=== PATIENT | male | born 1980 | race Caucasian/White ===

== ENCOUNTER → 2019-08-01 | Outpatient (CLI) | payer OTHER ==
[~2019-08-01] MED LIST: 0.9 % SODIUM CHLORIDE 10 ML DISP.SYRIN. ID ONE; CONTRAST GIVEN. MC PRN; GADOTERATE 5 MMOL/10ML VIAL. INT ART ONE; IOHEXOL 300 MG/ML 50 ML VIAL. INT ART ONE; LIDOCAINE 1% Multi-Dose 20 ML VIAL. ID ONE
--- NOTE | 2019-08-01 14:57 | KCIC ---
MRI arthrogram of the right shoulder HISTORY: Right shoulder pain. TECHNIQUE: Routine 4 plane sequences are obtained after intra-articular contrast injection. FINDINGS: Acromioclavicular joint is mildly degenerative. No evidence of rotator cuff tear. No significant fluid or contrast in the subdeltoid bursa. Small tear of the posterosuperior labrum. Tiny defect at the chondrolabral junction of the anteroinferior labrum seen on Aber sequence series 12 image 10. No acute articular cartilage defect. Biceps tendon is intact. No acute fracture. No aggressive bone destruction. IMPRESSION: 1. Posterosuperior labral tear. 2. Tiny defect or tear at the anteroinferior chondrolabral junction. Electronically signed by: Len Martell MD (08/01/2019 2:54 PM) [email or web address]
--- NOTE | 2019-08-01 17:32 | KCIC ---
PROCEDURE: Right shoulder injection using fluoroscopic guidance, prior to MR. HISTORY: Shoulder pain. TECHNIQUE: The procedure was explained to the patient as were potential risks, including among others infection, bleeding or allergic reaction. All questions were answered. Informed written and verbal consent was obtained. The shoulder was prepped and draped in the usual sterile manner. Following administration of local anesthetic, a 22-gauge needle was advanced into the anterior shoulder. Following negative aspiration, 12 cc of a solution of 5cc Omnipaque-300 contrast, 5 cc 1% lidocaine, 10 cc normal saline, and 0.1 cc gadolinium was injected without difficulty. The needle was removed. There was good hemostasis at the injection site. The patient left in stable condition without immediate complication. Patient was given postprocedural instructions and advised to contact their physician in the event of any unexpected complication. A single spot image is obtained. FLUOROSCOPY TIME:?24 seconds Electronically signed by: Len Martell MD (08/01/2019 5:29 PM) [email or web address]
== END | disposition home or self-care (01) ==
LOC: KCIC 13:19
PROVIDERS: ATTEND Family Medicine
DX: M25.511 Pain in right shoulder (principal)
CPT/HCPCS: 23350; 73222; 77002; A9575; Q9967; 73040

== ENCOUNTER 2019-10-18 08:27 | Day surgery (SDC) | payer OTHER ==
[~2019-10-18] VITALS: Ht 182.9 cm; Wt 83.0 kg
[~2019-10-18 08:27] MED LIST changes: -0.9 % SODIUM CHLORIDE 10 ML DISP.SYRIN. ID ONE; +BUPIVACAINE MPF 0.5% 30 ML VIAL. ONE; +CLINDAMYCIN 900MG PREMIX 50 ML IV ONE; -CONTRAST GIVEN. MC PRN; +DEXAMETHASONE SOD PHOS 4 MG/ML VIAL ONE; +EPINEPHrine VIAL 30 MG/30 ML VIAL ONE; -GADOTERATE 5 MMOL/10ML VIAL. INT ART ONE; +HYDROmorphone 2 MG/ML VIAL IV PRN; -IOHEXOL 300 MG/ML 50 ML VIAL. INT ART ONE; +IV RINGERS,LACTATED 1000ML 1,000 ML IV SCH; +LIDOCAINE 1% 20 ML VIAL. ONE; -LIDOCAINE 1% Multi-Dose 20 ML VIAL. ID ONE; +LIDOCAINE 1% PF 2 ML VIAL. ID PRN; +LIDOCAINE 2% PF 5 ML VIAL. ONE; +MIDAZOLAM HCL/PF 2 MG/2 ML VIAL. ONE; +MORPHINE SULFATE 2 MG/ML VIAL. IV PRN; +ONDANSETRON PF 4 MG/2 ML VIAL. IV PRN; +ONDANSETRON PF 4 MG/2 ML VIAL. ONE; +PROCHLORPERAZINE 10 MG/2 ML VIAL. IV PRN; +PROPOFOL 20 ML IV ONE; +ROCURONIUM 50 MG/5 ML VIAL. ONE; +fentaNYL PF VIAL 100 MCG/2 ML VIAL IV PRN; +fentaNYL PF VIAL 100 MCG/2 ML VIAL ONE
[2019-10-18] MEDS ORDERED: MIDAZOLAM HCL/PF 2 MG/2 ML VIAL. ONE (09:19)
[2019-10-18] MEDS ORDERED: BUPIVACAINE MPF 0.5% 30 ML VIAL. ONE (09:20)
--- NOTE | 2019-10-18 09:49 | DISCH ---
DISCHARGE INSTRUCTIONS Condition on Discharge Condition on Discharge: Stable Activity After Discharge Activity Instructions for Disc: Other ROM activity Other activity instructions: arm to remain in sling Bathing Instructions: Shower-keep dressing dry Weight Bearing Status after Di: Non weight bearing Diet after Discharge Diet after Discharge: Regular Wound Incision Care Wound/Incision Care: Ice to area for comfort, Keep wound/cast CDI, Change dressing Contacting the [facility] after DC Call your doctor for: Concerns you may have Follow-Up Follow up with: Priti in 2 wks SOUTH ALVAREZ II, MD Oct 18, 2019 09:49
[2019-10-18] MEDS ORDERED: SEVOFLURANE > 120 MINUTES. IH ONE (10:51)
[2019-10-18] MEDS ORDERED: GLYCOPYRROLATE 1 MG/5 ML VIAL. ONE (11:11)
[2019-10-18] MEDS ORDERED: NEOSTIGMINE METHYLSULFATE 5 MG/5 ML SYRINGE. ONE (11:11)
--- NOTE | 2019-10-18 12:15 | PDOC4 ---
Operative Note Operative Note Date of procedure: 10/18/2019 Surgeon: Sumit Alvarez Asst.: Jaison Marroquin Preoperative diagnosis: Right shoulder labral tear Postoperative diagnosis: Same Procedure performed: Arthroscopic right shoulder labral repair Anesthesia: Gen. plus nerve block Complications: None Findings: Patient had a labral tear involving the superior labrum wrapping around to his posterior labrum. 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 Clinical and radiographic examination including MRI were consistent with his preoperative diagnosis and we discussed proceeding with surgery given his failure of conservative therapies. We discussed the risks, benefits, and alternatives and he elected to proceed. Description of procedure: Patient was greeted in the preoperative area by myself for the correct extremity was verified and marked. He had a regional nerve block placed by the anesthesiology team. He was taken back to the operative suite, antibiotic started as he was brought back. Once in the operative room, he was transferred gently supine to the operative room table and secured to bed with all pressure points padded, he had successful induction of a general anesthetic. We then laid him in the lateral position with his right side up and secured to the bed using a beanbag. Axillary roll was used and pressure points were padded as well. We then proceeded prep and drape right upper extremity in her usual sterile fashion and conducted our standard preoperative timeout. Ioban was used at the periphery of the drapes. I palpated and marked surface anatomy and nemesio lines my planned portal incisions. I then used a spinal needle localized posterior superior portal and incised skin in accordance with this. I then placed the camera into the glenohumeral joint and used a spinal needle to localize an anterosuperior portal and an anteroinferior portal. I then conducted my diagnostic arthroscopy and noted his labral tear. The remainder of his shoulder was without pathology. I then used a spinal needle to localize a posterior inferior portal, I placed trochars in these portals. After this, used a periosteal elevator, arthroscopic, 2 free up the labrum and the involved portion. I then used the shaver to carefully debride the bone without decorticating it to prepare my bony bed. After this, I placed 2 anchors at the posterior portion of his tear, extended to about 8 o'clock position and then tied these down using arthroscopic knot-tying techniques. I then directed my attention, after repositioned my camera, 2 placed 2 anchors into the superior portion of his labrum and passed these again with a spectrum suture passing device and tied them down with arthroscopic knot-tying tying techniques. His labral tear was stable to probing. I used a shaver to remove any loose bony debris and the excess arthroscopic fluid. After this, the portals were removed as was the arthroscopic instrumentation and I closed skin with simple interrupted 3-0 nylon. He was placed into an abduction pillow sling. He is awake from anesthesia and laid gently supine and transferred gently supine to the recovery room cart and taken to PACU in a stable and extubated condition. Postoperative plan is to discharge him home. [place]'ll be nonweightbearing right upper extremity, he will follow up with me in 2 weeks, sooner should a problem arise SUMIT ALVAREZ II, MD Oct 18, 2019 12:15
[2019-10-18] MEDS ORDERED: DOCU-109 PO (12:28)
[2019-10-18] MEDS ORDERED: ONDA8TAB9 PO (12:29)
[2019-10-18] MEDS ORDERED: OXYC1TAB15 PO (12:29)
[2019-10-18] MEDS ORDERED: oxyCODONE/APAP 5/325 1 TAB TABLET PO ONE (12:30)
[2019-10-18 13:05] VITALS: BP 108/77
== END 2019-10-18 13:25 | disposition home or self-care (01) ==
LOC: SURG 08:27
PROVIDERS: ATTEND Orthopaedic Surgery Sports Medicine
DX: S43.431A Superior glenoid labrum lesion of right shoulder, initial encounter (principal); Z88.0 Allergy status to penicillin; Z87.442 Personal history of urinary calculi; Z72.89 Other problems related to lifestyle; Z79.899 Other long term (current) drug therapy; X58.XXXA Exposure to other specified factors, initial encounter; Y93.89 Activity, other specified; Y92.89 Other specified places as the place of occurrence of the external cause; Y99.8 Other external cause status
CPT/HCPCS: 29807; 36415; 64415; 82306; A7015; C1713; C1782; J0171; J0780; J1100; J2001; J2250; J2405; J2704; J2710; J3010; J3490

== ENCOUNTER 2020-01-11 09:58 | Day surgery (SDC) | payer OTHER ==
[~2020-01-11 09:58] MED LIST changes: -BUPIVACAINE MPF 0.5% 30 ML VIAL. ONE; -CLINDAMYCIN 900MG PREMIX 50 ML IV ONE; -DEXAMETHASONE SOD PHOS 4 MG/ML VIAL ONE; +DOCU-109 PO; -EPINEPHrine VIAL 30 MG/30 ML VIAL ONE; -LIDOCAINE 1% 20 ML VIAL. ONE; -LIDOCAINE 2% PF 5 ML VIAL. ONE; +LORA10TA65 PO; -MIDAZOLAM HCL/PF 2 MG/2 ML VIAL. ONE; +ONDA8TAB9 PO; -ONDANSETRON PF 4 MG/2 ML VIAL. ONE; +OXYC1TAB15 PO; -PROPOFOL 20 ML IV ONE; -ROCURONIUM 50 MG/5 ML VIAL. ONE; -fentaNYL PF VIAL 100 MCG/2 ML VIAL ONE
--- NOTE | 2020-01-11 11:09 | DISCH ---
DISCHARGE INSTRUCTIONS Condition on Discharge Condition on Discharge: Stable Activity After Discharge Activity Instructions for Disc: Other ROM activity Other activity instructions: Arm to remain in sling while block in effect, work on range of motion after Weight Bearing Status after Di: Non weight bearing Diet after Discharge Diet after Discharge: Regular Wound Incision Care Wound/Incision Care: Ice to area for comfort, Keep wound/cast CDI Contacting the [facility] after DC Call your doctor for: Concerns you may have Follow-Up Follow up with: Priti in 2 weeks Follow Up With: Physical therapy tomorrow SOUTH ALVAREZ II, MD Jan 11, 2020 11:09
[2020-01-11] MEDS ORDERED: BUPIVACAINE MPF 0.5% 30 ML VIAL. ONE (11:17)
[2020-01-11] MEDS ORDERED: BUPIVACAINE-EPI 0.5%-1:200000 MPF 30 ML VIAL. ONE (11:17)
[2020-01-11] MEDS ORDERED: LIDOCAINE 1% PF 2 ML VIAL. ONE (11:18)
[2020-01-11] MEDS ORDERED: MIDAZOLAM HCL/PF 2 MG/2 ML VIAL. ONE (11:24)
[2020-01-11] MEDS ORDERED: PROPOFOL 20 ML IV ONE (11:28)
--- NOTE | 2020-01-11 11:59 | PDOC4 ---
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 He had plateaued in terms of his range of motion and was not able to make any progress. Please see my outpatient note for further details. We had a discussion of the risks, benefits, and alternatives to the above surgery and he wished to proceed. Description of procedure: Patient was greeted in the preoperative area by myself or the correct extremity was verified and marked. He was taken to the PACU where a regional nerve block was performed by the anesthesiology team. After this, he was administered conscious sedation and upon adequate relaxation I conducted my examination under anesthesia and then using a short lever arm and an assistant real estate manager holding's stabilization at the scapula, I performed slow and steady forward elevation maneuvers. There was a gratifying release of fibrotic tissue and after gentle repeated maneuvers, his forward elevation was about 160 degrees. He was then awakened from anesthesia, he tolerated this well. He was given a simple sling. Postoperative instructions discussed with his as well as given in written form. I will see him back in 2 weeks, sooner should a problem arise SUMIT ALVAREZ II, MD Jan 11, 2020 11:59
[2020-01-11] MEDS ORDERED: MIDAZOLAM HCL/PF 2 MG/2 ML VIAL. IV ONE (12:00)
[2020-01-11] MEDS ORDERED: OXYC-325 PO (12:20)
[2020-01-11 12:25] VITALS: BP 124/72
== END 2020-01-11 12:50 | disposition home or self-care (01) ==
LOC: SURG 09:58
PROVIDERS: ATTEND Orthopaedic Surgery Sports Medicine
DX: M24.611 Ankylosis, right shoulder (principal); Z87.442 Personal history of urinary calculi; Z72.89 Other problems related to lifestyle
CPT/HCPCS: 23700; J2250; J2704; J3010; J3490